=== PATIENT | male | born 1970 ===

== ENCOUNTER → 2018-02-21 19:01 | Outpatient (REF) | payer SELFPAY ==
[2018-02-21 19:22] LABS: Add Manual Diff / Slide Review NO; Basophils Percent Auto 0.7 % (0-2); Eosinophils Percent Auto 1.9 % (2-4); Hematocrit 50.3 % (41-53); Hemoglobin 17.2 g/dL (13.5-17.5); Lymphocytes Percent Auto 21.4 % (25-40); Mean Corpuscular HGB Conc 34.2 % (30-36); Mean Corpuscular Hemoglobin 29.4 PG (26-34); Mean Corpuscular Volume 86.1 fL (80-100); Monocytes Percent Auto 6.8 % (3-14); Neutrophils Absolute Auto 6600 /uL (3000-5900); Neutrophils Percent Auto 69.2 % (50-75); Platelet Count 256 X10^3/uL (150-400); Red Blood Cell Count 5.85 X10^6/uL (4.5-5.9); Red Cell Distribution Width 14.7 % (11.6-14.8); White Blood Cell Count 9.5 X10^3/uL (4.5-11.0)
[2018-02-21 19:27] LABS: Alanine Aminotransferase 34 IU/L (21-72); Albumin 4.5 g/dL (3.5-5.0); Albumin Globulin Ratio 1.6 (1.0-2.8); Alkaline Phosphatase 113 U/L (38-126); Aspartate Aminotransferase 27 IU/L (17-59); BUN Creatinine Ratio 18.3 (6-22); Bilirubin Total 0.4 mg/dL (0.2-1.3); Blood Urea Nitrogen 22 mg/dL (9-20); Calcium 9.7 mg/dL (8.4-10.2); Carbon Dioxide 25 mmol/L (22-32); Chloride 102 mmol/L (98-107); Cholesterol 156 mg/dL (140-199); Estimated Glomerular Filt Rate > 60.0 mL/min (>60); Globulin 2.9 g/dL (1.7-4.1); Glucose 93 mg/dL (70-100); HDL Cholesterol 41 mg/dL (40-60); HEMOLYSIS < 15 (0-50); LDL Cholesterol Calculated 63 mg/dL (<100); Potassium 4.5 mmol/L (3.4-5.1); Sodium 142 mmol/L (137-145); Total Protein 7.4 g/dL (6.3-8.2); Triglycerides 259 mg/dL (35-150)
[2018-02-21 19:30] LABS: High Sensitivity CRP - Cardiac 1.8 mg/L (1.0-3.0)
[2018-02-21 19:45] LABS: Vitamin D 25 Hydroxy (D3) 18.5 ng/mL (30.0-100.0)
[2018-02-21 19:46] LABS: Free T3, Triiodothyronine Free 3.53 pg/mL (2.77-5.27); Free T4, Direct Thyroxine 0.92 ng/dL (0.78-2.19)
[2018-02-21 19:47] LABS: Hemoglobin A1C% w Est Avg Glu 5.6 % (4.0-6.0)
[2018-02-21 20:00] LABS: Thyroid Stimulating Hormone 1.72 uIU/mL (0.47-4.68)
[2018-02-21 20:32] LABS: Folate 11.2 ng/mL (2.76-20.0); Vitamin B12 448 pg/mL (239-931)
== END ==
LOC: LAB 19:01
PROVIDERS: Visit Provider Nurse Practitioner Acute Care
DX: I10 Essential (primary) hypertension (principal); R94.6 Abnormal results of thyroid function studies; R73.01 Impaired fasting glucose; E29.1 Testicular hypofunction
CPT/HCPCS: 80053; 80061; 82306; 82607; 82746; 83036; 84403; 84439; 84443; 84481; 85025; 86140

== ENCOUNTER → 2018-07-13 19:39 | Outpatient (REF) | payer SELFPAY ==
[2018-07-13 19:53] LABS: Add Manual Diff / Slide Review NO; Basophils Absolute Auto 100 /uL (0-100); Basophils Percent Auto 0.7 % (0-2); Eosinophils Absolute Auto 200 /uL (0-450); Eosinophils Percent Auto 2.3 % (2-4); Hematocrit 50.4 % (41-53); Hemoglobin 16.9 g/dL (13.5-17.5); Lymphocytes Absolute Auto 1900 /uL (1100-4500); Lymphocytes Percent Auto 20.8 % (25-40); Mean Corpuscular HGB Conc 33.5 % (30-36); Mean Corpuscular Hemoglobin 28.9 PG (26-34); Mean Corpuscular Volume 86.3 fL (80-100); Monocytes Absolute Auto 600 /uL (0-900); Monocytes Percent Auto 6.9 % (3-14); Neutrophils Absolute Auto 6400 /uL (1500-7000); Neutrophils Percent Auto 69.3 % (50-75); Platelet Count 245 X10^3/uL (150-400); Red Blood Cell Count 5.84 X10^6/uL (4.5-5.9); Red Cell Distribution Width 14.1 % (11.6-14.8); White Blood Cell Count 9.3 X10^3/uL (4.5-11.0)
[2018-07-13 19:56] LABS: Alanine Aminotransferase 22 IU/L (21-72); Albumin 4.3 g/dL (3.5-5.0); Albumin Globulin Ratio 1.5 (1.0-2.8); Alkaline Phosphatase 83 U/L (38-126); Aspartate Aminotransferase 64 IU/L (17-59); Bilirubin Total 0.5 mg/dL (0.2-1.3); Blood Urea Nitrogen 15 mg/dL (9-20); Carbon Dioxide 26 mmol/L (22-32); Chloride 102 mmol/L (98-107); Cholesterol 145 mg/dL (140-199); Estimated Glomerular Filt Rate > 60.0 mL/min (>60); Globulin 2.9 g/dL (1.7-4.1); Glucose 85 mg/dL (70-100); HDL Cholesterol 32 mg/dL (40-60); HEMOLYSIS 29 (0-50); LDL Cholesterol Calculated 60 mg/dL (<100); Sodium 138 mmol/L (137-145); Total Protein 7.2 g/dL (6.3-8.2); Triglycerides 263 mg/dL (35-150)
[2018-07-13 20:04] LABS: Hemoglobin A1C% w Est Avg Glu 5.2 % (4.0-6.0)
[2018-07-18 06:44] LABS: Testosterone, Free 1.04 ng/dL (0.87-5.47)
[2018-07-18 14:47] LABS: PSA Free % 30 % (calc) (> 25)
== END ==
LOC: LAB 19:39
PROVIDERS: Visit Provider Nurse Practitioner Acute Care
DX: R73.01 Impaired fasting glucose (principal); I10 Essential (primary) hypertension; E78.2 Mixed hyperlipidemia; E66.3 Overweight; Z82.49 Family history of ischemic heart disease and other diseases of the circulatory system
CPT/HCPCS: 80053; 80061; 83036; 84153; 84154; 84402; 85025